=== PATIENT | female | born 1970 | race African-American/Black ===

== ENCOUNTER 2018-11-09 06:41 | Emergency (ER) | payer MEDICARE ==
[~2018-11-09] VITALS: Ht 167.6 cm; Wt 55.0 kg
[~2018-11-09 06:41] MED LIST: DICY20TA11 PO; HYDR-4009 PO; MESA800T PO; P20 PO
[2018-11-09] MEDS ORDERED: ONDANSETRON HCL 4MG/2ML INJ IV STA (07:05)
[2018-11-09] MEDS ORDERED: METOCLOPRAMIDE HCL 10MG/2ML VIAL IV STA (07:05)
[2018-11-09] MEDS ORDERED: DIPHENHYDRAMINE 50MG/ML VIAL IV ONE (07:15)
[2018-11-09 08:07] LABS: BASOPHILS % 0.4 % (0.0-2.0); HEMATOCRIT. 40.3 % (36.0-48.0); HEMOGLOBIN. 13.6 g/dL (12.0-16.0); LYMPHOCYTES % 9.6 % (20.0-50.0); MEAN CORPUSCULAR HEMOGLOBIN 33.5 pg (28.0-32.0); MEAN CORPUSCULAR VOLUME 98.8 fL (81.0-99.0); MEAN PLATELET VOLUME 8.5 fl (7.4-10.4); MONOCYTES % 2.4 % (2.0-8.0); NEUTROPHILS % 87.6 % (40.0-76.0); PLATELET 229 x1000/uL (130-400); RED BLOOD CELL COUNT 4.07 mill/uL (4.2-5.4); RED CELL DISTRIBUTION WIDTH 12.4 % (11.6-14.6)
[2018-11-09 08:18] LABS: CHLORIDE 108 mEq/L (98-107)
[2018-11-09] MEDS ORDERED: HALOPERIDOL LACTATE 5MG/ML VIAL IM ONE (09:45)
[2018-11-09] MEDS ORDERED: ONDANSETRON HCL 4MG/2ML INJ IV ONE (10:00)
[2018-11-09 10:29] VITALS: BP 168/67
== END 2018-11-09 10:42 | disposition home or self-care (01) ==
LOC: ER 06:41
DX: R10.30 Lower abdominal pain, unspecified (principal); R19.7 Diarrhea, unspecified; R11.2 Nausea with vomiting, unspecified; Z88.6 Allergy status to analgesic agent; Z88.5 Allergy status to narcotic agent; Z79.899 Other long term (current) drug therapy; Z87.19 Personal history of other diseases of the digestive system
CPT/HCPCS: 36415; 74176; 80053; 83690; 84484; 85025; 93005; 96372; 96374; 96375; 96376; 99284; J1200; J1630; J2405; J2765